=== PATIENT | male | born 1985 | race Caucasian/White ===

== ENCOUNTER 2016-08-22 11:59 | Emergency (ER) | payer SELFPAY ==
--- NOTE | 2016-09-10 08:14 | ER ---
ADMIT: 08/22/2016 RM/LOC: ER [facility] MR#: [id number] [address] [id number] [place] [address] Emergency Room Report SEX: M AGE: 30 : 1985 DATE: 08/22/2016 This patient comes to the ER because he was having sex with his significant other. He lifted her up and then felt a tearing in his left groin area. Now, he has a large bulge. On physical exam, he does have an inguinal hernia that I am able to reduce. I wrote a prescription for Crane, and we will have him follow up with Dr. Willoughby. Please see my sheet. CATHERINE Yang / Richard Zuniga MD / cecille JOB #: [id number] CC: Richard Zuniga MD, Attending Physician Rajinder Willoughby MD, Family Physician
== END 2016-08-22 12:44 | disposition home or self-care (01) ==
LOC: ER 11:59
DX: K40.90 Unilateral inguinal hernia, without obstruction or gangrene, not specified as recurrent (principal); F17.210 Nicotine dependence, cigarettes, uncomplicated